=== PATIENT | female | born 1955 | race Caucasian/White ===

== ENCOUNTER 2019-03-20 20:46 | Emergency (ER) | payer OTHER ==
[~2019-03-20] VITALS: Ht 167.6 cm; Wt 137.9 kg
[2019-03-20 20:46] VITALS: BP 136/72
--- NOTE | 2019-03-20 20:46 | NUR ---
PT GAMALIEL BLS. TAKEN TO BED 3
--- NOTE | 2019-03-20 20:50 | NUR ---
63 YEAR OLD FEMALE COMPLAINS OF EPIGASTRIC PAIN THAT RADIATES TO THE BACK 6/10 SQUEEZING PAIN. PATIENT STATES PAIN STARTED IN MORNING AND SHE HAS VOMITED EARLIER, BUT NO NAUSEA CURRENTLY. PT COMPLAINS OF CONSTIPATION X 3 DAYS. PATIENT AOX4, BREATHING EVEN AND UNLABORED, SKIN WARM AND DRY. BED IN LOWEST POSITION, LOCKED, BED RAIL UPX1. PLACED ON MONTIOR. PMH - AFIB, DM2, CHF, COPD, UTI ALLERGIES - NKA
--- NOTE | 2019-03-20 21:17 | NUR ---
Dr. Ballard examining patient.
[2019-03-20] MEDS ORDERED: ONDANSETRON 4 MG/2 ML VIAL IVP ONE (21:20)
[2019-03-20] MEDS ORDERED: NACL 0.9% 1,000 ML IV SCH (21:20)
[2019-03-20] MEDS ORDERED: MORPHINE SULFATE 4 MG/ML SYR IVP ONE (21:20)
[2019-03-20 21:40] LABS: BASOPHILS % (AUTO) 0.1 % (0.0-2.0); EOSINOPHILS % (AUTO) 0.1 % (0.0-4.0); HEMOGLOBIN 15.8 g/dL (12.0-16.0); LYMPHOCYTES # (AUTO) 0.5 K/uL (2.5-16.5); LYMPHOCYTES % (AUTO) 5.2 % (20.5-51.1); MEAN CORPUSCULAR HEMOGLOBIN 30 pg (27-31); MEAN CORPUSCULAR HGB CONC 33 g/dL (33-37); MEAN CORPUSCULAR VOLUME 90.3 fL (80-94); MONOCYTES # (AUTO) 0.4 K/uL (0.8-1.0); MONOCYTES % (AUTO) 4.4 % (1.7-9.3); NEUTROPHILS # (AUTO) 9.3 K/uL (1.8-7.7); NEUTROPHILS % (AUTO) 90.2 % (42.2-75.2); PLATELET COUNT (AUTO) 367 K/uL (140-450); RED BLOOD CELL COUNT(AUTO) 5.32 MIL/uL (4.20-5.40); WHITE BLOOD COUNT (AUTO) 10.3 K/uL (4.8-10.8)
--- NOTE | 2019-03-20 21:51 | NUR ---
Note chele in EDM - 03/20/19 at 2158 by SportlobsterUma 63 YEAR OLD FEMALE COMPLAINS OF EPIGASTRIC PAIN THAT RADIATES TO THE BACK 6/10 SQUEEZING PAIN. PATIENT STATES PAIN STARTED IN MORNING AND SHE HAS VOMITED EARLIER, BUT NO NAUSEA CURRENTLY. PT COMPLAINS OF CONSTIPATION X 3 DAYS. PATIENT AOX4, BREATHING EVEN AND UNLABORED, SKIN WARM AND DRY. BED IN LOWEST POSITION, LOCKED, BED RAIL UPX1. PLACED ON [facility]. PMH - AFIB, DM2, CHF, COPD, UTI ALLERGIES - NKA
--- NOTE | 2019-03-20 21:58 | NUR ---
PT WOULD KEEP GOING BETWEEN 84-94% O2 SATURATION, PLACED ON 2L NC. PT O2 SATURATION 94%.
--- NOTE | 2019-03-20 22:00 | NUR ---
PATIENT ALERT AND AWAKE, BREATHING EVEN AND UNLABORED
[2019-03-20 22:10] LABS: ALBUMIN 3.5 g/dL (3.4-5.0); ANION GAP 15.9 (8-16); CARBON DIOXIDE 25.1 mmol/L (21-32); CREATININE 1.1 mg/dL (0.6-1.3); TOTAL BILIRUBIN 0.6 mg/dL (0.0-1.0)
--- NOTE | 2019-03-20 22:20 | NUR ---
PATIENT STATES SHE IS STILL UNABLE TO URINATE
[2019-03-20] MEDS ORDERED: NACL 0.9% 500 ML IV ONE ×2 (22:30→23:30)
--- NOTE | 2019-03-20 22:50 | NUR ---
PATIENT TAKEN TO CT
--- NOTE | 2019-03-20 23:07 | NUR ---
Maciej elaine in [facility] - 03/20/19 at 2307 by MEDJJ PATIENT ALERT AND AWAKE, BREATHING EVEN AND UNLABORED
--- NOTE | 2019-03-20 23:15 | NUR ---
PATIENT RETURNED FROM CT
--- NOTE | 2019-03-20 23:23 | NUR ---
PATIENT STATES SHE IS STILL UNABLE TO URINATE, DR RUIZ NOTIFIED
[2019-03-20 23:59] LABS: APPEARANCE,URINE CLEAR (CLEAR); BLOOD, URINE NEGATIVE (NEGATIVE); COLOR,URINE AMBER (YELLOW); LEUKOCYTE ESTERASE ,URINE NEGATIVE (NEGATIVE); NITRITE, URINE NEGATIVE (NEGATIVE); PH,URINE 5.5 (5.0-9.0); UGLUCOSE NEGATIVE (NEGATIVE)
[2019-03-21 00:43] LABS: BILIRUBIN,URINE NEGATIVE (NEGATIVE)
--- NOTE | 2019-03-21 00:43 | NUR ---
DR RUIZ AWARE OF PATIENT VS, SAYS HE DOES NOT WANT SECOND BOLUS OF FLUIDS AFTER ALL.
[2019-03-21] MEDS ORDERED: DILTIAZEM 25 MG/5 ML VIAL IVP ONE (00:45)
--- NOTE | 2019-03-21 01:32 | NUR ---
PATIENT ALERT AND AWAKE, BREATHING EVEN AND UNLABORED
--- NOTE | 2019-03-21 02:48 | NUR ---
Maciej elaine in [facility] - 03/21/19 at 0249 by RAS PATIENT ALERT AND AWAKE, BREATHING EVEN AND UNLABORED.
--- NOTE | 2019-03-21 02:50 | NUR ---
PATIENT ALERT AND AWAKE, BREATHING EVEN AND UNLABORED.
--- NOTE | 2019-03-21 07:06 | NUR ---
REPORT GIVEN TO AILEEN RN, TRANSFER OF CARE AT THIS TIME
--- NOTE | 2019-03-21 07:22 | NUR ---
SBAR RECEIVED FROM JENNIE. PT RESTING IN BED, VSS, RESP EVEN AND UNLABORED. ALL NEEDS MET AT THIS TIME.
[2019-03-21 10:49] VITALS: BP 132/78
--- NOTE | 2019-03-25 11:44 | NUR ---
Late entry. Confirmed with RN that 0.9 NS IV completed at 2400
== END 2019-03-21 10:50 | disposition home or self-care (01) ==
LOC: MED 20:46
DX: A08.4 Viral intestinal infection, unspecified (principal); J44.9 Chronic obstructive pulmonary disease, unspecified; E11.9 Type 2 diabetes mellitus without complications; F20.9 Schizophrenia, unspecified; I51.9 Heart disease, unspecified; Z98.890 Other specified postprocedural states
CPT/HCPCS: 36415; 71045; 74177; 80053; 81003; 82150; 83690; 83880; 84484; 84703; 85025; 93005; 96361; 96374; 96375; 99285; J2270; J2405; J3490; J7030; Q0092; Q9967

== ENCOUNTER 2020-03-30 07:09 | Emergency (ER) | payer OTHER ==
[~2020-03-30] VITALS: Ht 167.6 cm; Wt 130.2 kg
--- NOTE | 2020-03-30 07:11 | NUR ---
PT GAMALIEL ALS. TAKEN TO BED 10
--- NOTE | 2020-03-30 07:11 | NUR ---
Dr. Perry examining patient.
[2020-03-30 07:13] VITALS: BP 121/72
--- NOTE | 2020-03-30 07:15 | NUR ---
65 Y/O FEMALE C/O SOB X1 DAY. STARTED AT 0500 TODAY. PT STATES SHE IS USUALLY SOB BUT TODAY IS WORSE THAN NORMAL. PT STATES HAS O2 AT HOME 3L BUT DOES NOT USE IT BECAUSE IT DOESNT HELP. Sp02 ON SCENE HIGH 80S, FSBS 111. PT NOW 02 99% 2L N/C. PT WAS ABLE TO AMBULATE FROM GURNEY TO [facility] WITH SOME EFFORT. ON ASSESSMENT, LUNG SOUNDS CLEAR BILATERAL THROUGHOUT, NO EDEMA NOTED, <3 SECONDS CAP REFILL. PT DENIES PAIN AT THIS TIME. PT STATES SHE HAS A PRODUCTIVE COUGH X3 YEARS WITH PHLEGM THAT VARIES IN COLOR FROM GREEN TO CLEAR. PT STATES SHE HAS DIARRHEA EVERY MORNING THAT SUBSIDES THROUGHOUT THE DAY X4 MONTHS. PT STATES SHE IS SOB WHEN SHE MOVES AROUND. PT IS A/O X4 WITH EVEN AND UNLABORED RESPIRATIONS OBSERVED. PT IS LAYING IN BED WITH BED IN LOWEST POSITION, BRAKES LOCKED, X1 SIDERAIL UP. Hx CHF, DM, A. FIB, SCHIZOPHRENIA (+HALLUCINATIONS, STATES SHE STOPPED TAKING SEROQUEL YEARS AGO) NKA
--- NOTE | 2020-03-30 07:33 | NUR ---
CANELO RN AT BEDSIDE FOR EKG
--- NOTE | 2020-03-30 07:35 | NUR ---
XRAY AT BEDSIDE
--- NOTE | 2020-03-30 07:36 | NUR ---
LAB AT BEDSIDE
[2020-03-30 07:54] LABS: BASOPHILS # (AUTO) 0.2 K/uL (0.00-0.22); BASOPHILS % (AUTO) 1.7 % (0.0-2.0); EOSINOPHILS # (AUTO) 0.2 K/uL (0-0.4); HEMATOCRIT 42.4 % (36-48); HEMOGLOBIN 13.8 g/dL (12.0-16.0); LYMPHOCYTES % (AUTO) 21.4 % (20.5-51.1); MEAN CORPUSCULAR HEMOGLOBIN 29 pg (27-31); MEAN CORPUSCULAR HGB CONC 33 g/dL (33-37); MEAN CORPUSCULAR VOLUME 88.1 fL (80-94); MONOCYTES # (AUTO) 0.5 K/uL (0.8-1.0); MONOCYTES % (AUTO) 5.5 % (1.7-9.3); NEUTROPHILS # (AUTO) 6.4 K/uL (1.8-7.7); NEUTROPHILS % (AUTO) 69.4 % (42.2-75.2); PLATELET COUNT (AUTO) 356 K/uL (140-450); RED CELL DISTRIBUTION WIDTH 13.6 % (11.6-13.7); WHITE BLOOD COUNT (AUTO) 9.2 K/uL (4.8-10.8)
--- NOTE | 2020-03-30 08:00 | NUR ---
RT AT BEDSIDE FOR ABG
[2020-03-30 08:09] LABS: PROTHROMBIN TIME 10.9 secs (10.8-13.4)
[2020-03-30 08:20] LABS: ALBUMIN 3.2 g/dL (3.4-5.0); ANION GAP 12.5 (8-16); CARBON DIOXIDE 27.2 mmol/L (21-32); CREATININE 0.9 mg/dL (0.6-1.3); POTASSIUM 3.7 mmol/L (3.5-5.1); TOTAL BILIRUBIN 0.3 mg/dL (0.0-1.0)
[2020-03-30 08:23] LABS: D-DIMER < 100 ng/ml (0-400)
--- NOTE | 2020-03-30 08:25 | NUR ---
PT AMBULATED TO RESTROOM WITH WALKER. STEADY GAIT
--- NOTE | 2020-03-30 08:27 | NUR ---
UA collected and walked to lab.
[2020-03-30 09:08] LABS: BILIRUBIN,URINE NEGATIVE (NEGATIVE); BLOOD, URINE TRACE-L (NEGATIVE); COLOR,URINE YELLOW (YELLOW); LEUKOCYTE ESTERASE ,URINE NEGATIVE (NEGATIVE); NITRITE, URINE NEGATIVE (NEGATIVE); PH,URINE 7.5 (5.0-9.0); UGLUCOSE NEGATIVE (NEGATIVE)
[2020-03-30 09:37] LABS: APPEARANCE,URINE SLIGHTLY HAZY (CLEAR); RBC,URINE 0-5 /HPF (0-5); WBC,URINE 0-5 /HPF (0-5)
--- NOTE | 2020-03-30 09:58 | NUR ---
PT RESTING IN BED WITH EVEN AND UNLABORED RESPIRATIONS. VSS. WILL CONTINUE TO MONITOR. BED IN LOWEST POSITION, BRAKES LOCKED, X1 SIDERAIL UP.
--- NOTE | 2020-03-30 11:02 | NUR ---
Maciej elaine in ED - 03/30/20 at 1112 by [email or web address] Patient discharged with v/s stable. Written and verbal after care instructions given and explained. Patient verbalized understanding. Ambulatory with steady gait with assistive device. All questions addressed prior to discharge. Advised to follow up with PMD.
[2020-03-30 11:03] VITALS: BP 120/68
--- NOTE | 2020-03-30 11:03 | NUR ---
Patient discharged with v/s stable. Written and verbal after care instructions given and explained. Patient verbalized understanding. Wheel Chair Assisted with to shelter. All questions addressed prior to discharge. Advised to follow up with PMD.
== END 2020-03-30 11:03 | disposition home or self-care (01) ==
LOC: MED 07:09
DX: I48.91 Unspecified atrial fibrillation (principal); I10 Essential (primary) hypertension; E11.9 Type 2 diabetes mellitus without complications; J44.9 Chronic obstructive pulmonary disease, unspecified; F20.9 Schizophrenia, unspecified; Z79.899 Other long term (current) drug therapy
CPT/HCPCS: 36415; 71045; 80053; 81001; 83880; 84484; 85025; 85379; 85610; 85730; 93005; 99285

== ENCOUNTER 2020-12-18 23:48 | Emergency (ER) | payer OTHER ==
[~2020-12-18] VITALS: Ht 167.6 cm; Wt 103.9 kg
[2020-12-18 23:50] VITALS: BP 113/51
--- NOTE | 2020-12-18 23:53 | NUR ---
PATIENT TO BE 3 VIA [facility]
--- NOTE | 2020-12-19 00:10 | NUR ---
PT BIBA S/P FALL. PT REPORTS MECHANICAL FALL DUE TO UNEVEN TILES WHERE SHE IS STAYING. PT DENIEC LOC. PT REPORTS RIGHT LEG PAIN. PT DENIES NUMBING OR TINGLING, SENSATION INTACT. NO WOUND OR BLEEDING NOTED.
[2020-12-19] MEDS ORDERED: HYDROcodone/APAP 7.5/325 MG 1 TAB PO ONE (02:05)
[2020-12-19] MEDS ORDERED: HYDR-5080 PO (04:02)
[2020-12-19] MEDS ORDERED: IBUP-2218 PO (04:02)
--- NOTE | 2020-12-19 07:18 | NUR ---
Pt report given to SOFIYA JAY. Transfer of care at this time.
--- NOTE | 2020-12-19 07:25 | NUR ---
RECEIVED PT IN [facility] AOX4. RIGHT KNEE FX, PLACING KNEE IMMOBILIZER TO RIGHT LEG. PT PENDING DC.
--- NOTE | 2020-12-19 07:53 | NUR ---
PT TX INTO WHEELCHAIR WITH 1 PERSON ASSIST. TOLERATED WELL. HEATHER CALLED FOR DC. ATTEMPTING TO REACH STAFF AT [facility].
--- NOTE | 2020-12-19 08:54 | NUR ---
ATTEMPTED TO CALL [facility] X[facility], ATTEMPTING TO REACH STAFF FOR REPORT.
--- NOTE | 2020-12-19 09:05 | NUR ---
GAVE REPORT TO SOFIYA JACQUES FOR PENDING TRANSFER. ETA 30MINUTES.
[2020-12-19 10:53] VITALS: BP 126/74
--- NOTE | 2020-12-19 10:54 | NUR ---
Patient discharged with v/s stable. Written and verbal after care instructions given TIBIAL AND DISTAL FEMUR FRACTURE and explained. Patient alert, oriented and verbalized understanding of instructions. W/C ASSIST to car. All questions addressed prior to discharge. ID band removed. Patient advised to follow up with PMD. Rx of NORCO AND IBUPROFEN given. Patient educated on indication of medication including possible reaction and side effects. Opportunity to ask questions provided and answered.
== END 2020-12-19 10:53 | disposition home or self-care (01) ==
LOC: MED 12-19 00:01
DX: S72.491A Other fracture of lower end of right femur, initial encounter for closed fracture (principal); S82.191A Other fracture of upper end of right tibia, initial encounter for closed fracture; S09.90XA Unspecified injury of head, initial encounter; J44.9 Chronic obstructive pulmonary disease, unspecified; I11.0 Hypertensive heart disease with heart failure; I50.9 Heart failure, unspecified; E11.9 Type 2 diabetes mellitus without complications; Z79.899 Other long term (current) drug therapy; W18.09XA Striking against other object with subsequent fall, initial encounter; Y93.89 Activity, other specified; Y92.098 Other place in other non-institutional residence as the place of occurrence of the external cause; Y99.8 Other external cause status
CPT/HCPCS: 70450; 73502; 73562; 99285